=== PATIENT | male | born 1955 | race Caucasian/White ===

== ENCOUNTER 2019-12-03 19:54 | Observation (INO) | payer OTHER ==
--- OUTSIDE RECORDS SUMMARY | 2019-12-03 22:59 | XMS REPORT | Clinical Summary ---
:1955 Author Organization [facility] Address [address] [place] [address] Care Team Providers Name Role Phone Dyana Spencer MD Primary Care Provider Allergies No Known Allergies Medications Medication Sig Dispensed Refills Start Date End Date Status ciprofloxacin (CIPRO) Take 1 tablet 20 tablet 0 01/15/2019 500 MG tablet (500 mg total) by mouth 2 (two) times a day for 10 days. metroNIDAZOLE (FLAGYL) Take 1 tablet 30 tablet 0 01/15/2019 500 MG tablet (500 mg total) by mouth 3 (three) times a day for 10 days. Active Problems Not on file Encounters Date Type Specialty Care Team Description 01/15/2019 Emergency Emergency Medicine Patrice Mayfield is (Primary Dx); Jones Martinez MD Dehydrat ion after 12/02/2018 Social History Tobacco Use Types Packs/Day Years Used Date Never Smoker Smokeless Tobacco: Never Used Alcohol Use Drinks/Week oz/Week Comments Yes 3 Cans of beer 3.0 daily Sex Assigned at Date Recorded Not on file Job Start Date Occupation Industry Not on file Not on file Not on file Travel History Travel Start Travel End No recent travel history available. Last Filed Vital Signs Vital Sign Reading Time Taken Comments Blood Pressure 141/74 01/15/2019 5:33 PM CDT Pulse 77 01/15/2019 5:33 PM CDT Temperature 36.8 C (98.3 F) 01/15/2019 12:47 PM CDT Respiratory Rate 18 01/15/2019 5:33 PM CDT Oxygen Saturation 95% 01/15/2019 5:33 PM CDT Inhaled Oxygen Concentration - - Weight - - Height 172.7 cm (5' 8") 01/15/2019 12:47 PM CDT Body Mass Index - - Plan of Treatment Health Maintenance Due Date Last Done Comments COLONOSCOPY SCREENING 2004 SHINGLES VACCINES (#1) 2004 65+ PNEUMOCOCCAL VACCINE (1 of 2 - PCV13) 2019 INFLUENZA VACCINE 01/11/2020 Procedures Procedure Name Priority Date/Time Associated Comments Diagnosis CT ABDOMEN PELVIS W STAT 01/15/2019 4:48 Resu lts for this CONTRAST PM CDT procedure are i n the results section. VENOUS BLOOD GAS STAT 01/15/2019 2:00 Results for this PM CDT procedure are i n the results section. GASTROINTESTINAL PANEL Routine 01/15/2019 2:00 R esults for this PM CDT procedure are i n the results section. ESTIMATED GFR STAT 01/15/2019 1:52 Results fo r this PM CDT procedure are i n the results section. LACTIC ACID LEVEL STAT 01/15/2019 1:52 Result s for this PM CDT procedure are i n the results section. CREATINE KINASE, TOTAL STAT 01/15/2019 1:52 R esults for this (CPK) PM CDT procedure are i n the results section. TROPONIN STAT 01/15/2019 1:52 Results for this PM CDT procedure are i n the results section. LIPASE LEVEL STAT 01/15/2019 1:52 Results for this PM CDT procedure are i n the results section. URINALYSIS SCREEN AND STAT 01/15/2019 1:52 Re sults for this MICROSCOPY, WITH REFLEX PM CDT proc edure are in TO CULTURE the results section. COMPREHENSIVE METABOLIC STAT 01/15/2019 1:52 Results for this PANEL PM CDT procedure are i n the results section. HC COMPLETE BLD COUNT STAT 01/15/2019 1:52 Re sults for this W/AUTO DIFF PM CDT procedure are i n the results section. URINE CULTURE STAT 01/15/2019 1:52 Results fo r this PM CDT procedure are i n the results section. ECG 12-LEAD STAT 01/15/2019 1:51 Results for this PM CDT procedure are i n the results section. ECG ED PRELIMINARY Routine 01/15/2019 1:28 Resul ts for this INTERPRETATION PM CDT procedure are in the results section. after 12/02/[address] Abdomen Pelvis W Contrast (01/15/2019 4:48 PM CDT) Specimen Narrative Performed At Examination: CT ABDOMEN PELVIS W CONTRAS T [facility] Clinical history: IV and PO contrast A bdominal pain diarrhea Comparison: None Technique: Multiple computerized axial tomographic anyi ges were obtained of the abdomen and pelvis following administration of IV contrast.Sagittal and coronal computerized reformatted images were also obtained. Enteric contrast was not adm inistered. CT scans are performed using radiation dose reduction techniques. Technical factors are evaluated and adjusted to ensu re appropriate moderation of exposure. Automated dose management te chnology is applied to adjust radiation exposure whi le achieving a diagnostic quality image. IMPRESSION: The visualized lung bases are clear. Calcified athe rosclerotic coronary arterial plaque is present. Abdomen: 1. Left renal cysts demonstrates simple characteristic s and generally do not require surveillance. A 0.7 cm nodular density ext ending inferiorly off the inferior pole of the left kidney is too small to definitively characterize. The liver, spleen, adrenal glands, pancreas, and kidneys ar e otherwise unremarkable. 2. The pancreatic and biliary ducts are not dilated. T he abdominal aorta is normal caliber. 3. The bowel is not frankly dilated. Borderline flui d and gas distention of essentially the entire small bowel witho ut focal transition point may represent ileus. Mild mucosal enh ancement suggests possible enteritis. 4. There is no significant abdominal w all defect, hernia, or abscess. Pelvis: 1. Prostatectomy. The bladder is unrem arkable. 2. There is no acute osseous pathology . CONCLUSION: 1. PROSTATECTOMY. 2. PROBABLE ILEUS WITH MILD NONSPECIFIC ENTERITIS. 3. PLEASE SEE ABOVE [facility]-[id number] Procedure Note Hm Interface, Radiology Results Incoming - 01/15/2019 5:29 PM CDT Examination: CT ABDOMEN PELVIS W CONTRAST Clinical history: IV and PO contrast Ab dominal pain diarrhea Comparison: None Technique: Multiple computerized axial t omographic images were obtained of the abdomen and pelvis following administration of IV contrast.Sagittal and coronal computerized reformatted images were also obtained. Enteric contrast was not administered. CT scans are performed using radiation d ose reduction techniques. Technical factors are evaluated and adjusted to ensure appropriate moderation of exposure. Automated dose management technology is applied to adjust radiation exposure while achie ving a diagnostic quality image. IMPRESSION: The visualized lung bases are clear. C alcified atherosclerotic coronary arterial plaque is present. Abdomen: 1. Left renal cysts demonstrates simple characteristics and generally do not require surveillance. A 0.7 cm nodular density extending inferiorly off the inferior pole of the left kidney is too small to definitively characterize. The liver, spleen, adrenal glands, pancreas, and kidneys ar e otherwise unremarkable. 2. The pancreatic and biliary ducts are not dilated. The abdominal aorta is normal caliber. 3. The bowel is not frankly dilated. Juan Manuel rderline fluid and gas distention of essentially the entire small bowel without focal transition point may represent ileus. Mild mucosal enhancement suggests possible enteritis. 4. There is no significant abdominal wa ll defect, hernia, or abscess. Pelvis: 1. Prostatectomy. The bladder is unrema rkable. 2. There is no acute osseous pathology. CONCLUSION: 1. PROSTATECTOMY. 2. PROBABLE ILEUS WITH MILD NONSPECIFIC ENTERITIS. 3. PLEASE SEE ABOVE [facility]-[id number] Performing Organization Address City/[facility]/Zipcode Phone Number [address] [address] Gastrointestinal panel (01/15/2019 2:00 PM CDT) [facility] Gastrointestinal panel Positive for Sapovirus [facility] Negative for all other pathogens tested: HOSPITAL Negative for Salmonella Negative for Campylobacter Negative for Diarrheagenic E coli/Shigella Negative for Shiga-like toxin-producing E coli Negative for Plesiomonas shigelloides Negative for Yersinia enterocolitica Negative for Vibrio species Negative for Clostridium difficile (Toxin A/B) Negative for Cryptosporidium Negative for Giardia lamblia Negative for Cyclospora cayeteanensis Negative for Entamoeba histolytica Negative for Adenovirus F 40/41 Negative for Astrovirus Negative for Norovirus GI/GII Negative for Rotavirus A Negative for E coli 0157 This real-time PCR assay detects the presence of nucle ic acids (RNA or DNA) for the gastrointestinal pathogens listed. A result of "Not-detected" does not exclude the possib ility of the presence of one or more pathogens at concentrat ions less than the detectable limits of the assay. (A) Comment: Specimen Information Specimen Source: Stool Specimen Site: Nonpreserved Specimen Stool - Nonpreserved Performing Organization Address City/[facility]/Zipcode Phone Number [facility] DEPARTMENT OF PATHOLOGY AND [address] [place] [phone] GENOMIC MEDICINE [address] [place] [address] Venous blood gas (01/15/2019 2:00 PM CDT) Pathologist Sig nature pH, venous 7.33 7.32 - 7.42 [facility] pCO2, venous 58 (H) 45 - [address] [facility] pO2, venous 22 (L) 25 - [address] [facility] Base excess, venous 2 -2 - 2 mEq/L [facility] O2 saturation, 31 (L) 40 - 70 % [facility] Bicarbonate, venous 29.8 (H) 21.0 - 28.0 [facility] mmol/L [facility] Specimen Blood Performing Organization Address [facility]/Zipcode Phone Number [facility] DEPARTMENT OF PATHOLOGY [address] [facility] [place] [phone] AND GENOMIC MEDICINE [facility] [address] [facility] [place] [address] HOSPITAL Urinalysis screen and microscopy, with reflex to culture (01/15/2019 1:52 PM CDT) Pathologist Sig nature Specimen site Clean catch [facility] Color, UA Yellow [facility] Appearance, UA Clear [facility] Specific gravity, 1.025 1.001 - 1.030 [facility] pH, UA 5.0 5.0 - 9.0 [facility] Protein, UA 1+ (A) Negative [facility] Glucose, UA 1+ (A) Negative [facility] Ketones, UA Trace (A) Negative [facility] Bilirubin, UA Negative Negative [facility] Blood, UA Negative Negative [facility] Nitrite, UA Negative Negative [facility] Urobilinogen, UA <2.0 <2.0 E.U./dL [facility] Leukocyte esterase, Negative Negative [facility] WBC, UA 2 (H) 0 - 1 /HPF [facility] RBC, UA 2 0 - 5 /HPF [facility] Bacteria, UA None seen None seen [facility] Yeast, UA None seen [facility] Yeast with None seen [facility] pseudohyphae, UA [facility] Specimen Urine Performing Organization Address [facility] Phone Number [facility] DEPARTMENT OF PATHOLOGY [address] [place] [address] [phone] Estimated GFR (01/15/2019 1:52 PM CDT) Pathologist [facility] Estimated GFR 73 mL/min/1.73 [facility] Comment: m2 [facility] Catergory Units Interpretation HOS PITAL G1 >=90 Normal or high G2 60-89 Mildly decreased G3a 45-59 Mildly to moderately decreas ed G3b 30-44 Moderately to severely decre ased G4 15-29 Severely decreased G5 <15 Kidney failure The eGFR was calculated using the Chronic Kidney Disea se Epidemiology Collaboration (CKD-EPI) equation. Interpretation is based on recommendations of the National Kidney Foundation-Kidney Disease Outcomes Dejan lity Initiative (NKF-KDOQI) published in 2014. Specimen Plasma specimen Performing Organization Address [facility] Phone Number [facility] DEPARTMENT OF PATHOLOGY [address] [place] [address] Troponin (01/15/2019 1:52 PM CDT) Pathologist [facility] Troponin <0.006 0.000 - 0.040 [facility] Comment: ng/mL [facility] Laboratories changed methodology eff ective: HOSPITAL 10/16/2018 at 10:00 am The new method has a 99th percentile cutoff of 0.040 n g/mL Specimen Plasma specimen Performing Organization Address [facility] Phone Number [facility] DEPARTMENT OF PATHOLOGY [address] [place] [phone] CBC with platelet and differential (01/15/2019 1:52 PM CDT) Pathologist [facility] WBC 14.9 (H) 4.5 - 11.0 k/uL [facility] RBC 6.12 (H) 4.40 - 6.00 [facility] m/uL [facility] HGB 18.1 (H) 14.0 - 18.0 [facility] g/dL [facility] HCT 54.1 (H) 41.0 - 51.0 % [facility] MCV 88.4 82.0 - 100.[address] [facility] MCH 29.6 27.0 - 34.[address] [facility] MCHC 33.5 31.0 - 37.0 [facility] g/dL [facility] RDW - SD 44.4 37.0 - 55.[address] [facility] MPV 10.5 6.9 - 11.[address] [facility] Platelet count 396 150 - 400 K/uL [facility] Nucleated RBC 0.00 /[address] [facility] Neutrophils 88.8 (H) 39.0 - 69.0 % [facility] Lymphocytes 2.8 (L) 25.0 - 45.0 % [facility] Monocytes 7.0 0.0 - 10.0 % [facility] Eosinophils 0.8 0.0 - 5.0 % [facility] Basophils 0.2 0.0 - 1.0 % [facility] Immature granulocytes 0.4 0.0 - 1.0 % [facility] Specimen Blood Performing Organization Address City/[facility]/Zipcode Phone Number [facility] DEPARTMENT OF PATHOLOGY [address] [place] [address] [phone] [address] HOSPITAL Urine culture (01/15/2019 1:52 PM CDT) Pathologist Sig nature Urine culture SEE COMMENTComment: [facility] Bacteriuria screen [facility] negative. Specimen Performing Organization Address City/[facility]/Zipcode Phone Number [facility] DEPARTMENT OF PATHOLOGY [address] [place] [phone] AND [facility] [phone] [place] [address] X [phone] HOSPITAL Lipase level (01/15/2019 1:52 PM CDT) Pathologist Sig nature Lipase 22 13 - 60 U/L [facility] Specimen Plasma specimen Performing Organization Address City/[facility]/Zipcode Phone Number [facility] DEPARTMENT OF PATHOLOGY [address] [place] [address] X [phone] AND GENOMIC MEDICINE [place] [address] [place] [address] [facility] Lactic acid level (01/15/2019 1:52 PM CDT) Pathologist Sig nature Lactic acid 1.0 0.5 - 2.2 mmol/L [facility] Specimen Plasma specimen Performing Organization Address City/[facility] Phone Number [facility] DEPARTMENT OF PATHOLOGY [address] [place] [address] X [phone] X [address] [place] [address] Creatine kinase, total (CPK) (01/15/2019 1:52 PM CDT) Pathologist Sig nature Creatine kinase 60 39 - 308 U/L [facility] Specimen Plasma specimen Performing Organization Address [facility] Phone Number [facility] DEPARTMENT OF PATHOLOGY [address] [place] [address] X [phone] [place] [address] Comprehensive metabolic panel (01/15/2019 1:52 PM CDT) Pathologist Sig nature Sodium 140 135 - 148 mEq/L [facility] Potassium 4.0 3.5 - 5.0 mEq/L [facility] Chloride 102 98 - 112 mEq/L [facility] CO2 25 24 - 31 mEq/L [facility] Anion gap 13@ANIO 7 - 15 mEq/L [facility] BUN 15 8 - 23 mg/dL [facility] Creatinine 1.06 0.70 - 1.20 [facility]/dL [facility] Glucose 135 (H) 65 - 99 mg/dL [facility] Calcium 9.0 8.8 - 10.2 mg/dL [facility] Protein 7.6 6.3 - 8.3 g/dL [facility] Albumin 4.8 3.5 - 5.0 g/dL [facility] A/G ratio 1.7 0.7 - 3.8 [facility] Alkaline phosphatase 82 40 - 129 U/L [facility] AST 26 10 - 50 U/L [facility] ALT 28 5 - 50 U/L [facility] Total bilirubin 0.7 0.2 - 1.2 mg/dL [facility] Specimen Plasma specimen Performing Organization Address City/[facility]/Zipcode Phone Number [facility] DEPARTMENT OF PATHOLOGY [address] [facility] [place] [address] AND GENOMIC MEDICINE [facility] [address] [facility] [place] [address] HOSPITAL ECG 12 lead (01/15/2019 1:51 PM CDT) Pathologist Sig nature Ventricular rate 85 [facility] Atrial rate 85 [facility] MT interval 160 [facility] QRSD interval 106 [facility] QT interval 376 [facility] QTC interval 447 [facility] P axis 1 43 [facility] QRS axis 1 65 [facility] T wave axis 97 [facility] EKG impression Normal sinus [facility] MUSE rhythm-Nonspecific ST and T wave abnormality-Abnormal ECG-No previous ECGs available-Electronicall y Signed By Yoana ALVAREZ, Jose Eduardodaradha ([id number]) on 01/16/2019 10:47:53 AM Specimen Narrative Performed At This result has an attachment that is no t available. Performing Organization Address City/[facility] Phone Number [facility] MUSE [address] [place] [address] ECG ED Preliminary Interpretation - Not an Order (01/15/2019 1:28 PM CDT) Narrative Performed At Patrice Mayfield MD 01/18/2019 12:34 AM ECG ED Preliminary Interpretation - Not an Order Performed by: Patrice Mayfield MD Authorized by: Patrice Mayfield MD ECG reviewed by ED Physician in the abse nce of a prizer hand: yes Interpretation: Interpretation: abnormal Rate: ECG rate: 85 ECG rate assessment: normal Rhythm: Rhythm: sinus rhythm Ectopy: Ectopy: none QRS: QRS axis: Normal QRS intervals: Normal ST segments: ST segments: Non-specific T waves: T waves: non-specific after 12/02/2018 Advance Directives For more information, please contact: [phone] Type Date Recorded Patient Emergency Room Clinician Explanati on Advance Directives, Living Will 01/15/2019 2:10 PM and Medical Power of Project Analyst
--- OUTSIDE RECORDS SUMMARY | 2019-12-03 23:00 | XMS REPORT | Continuity of Care Document ---
:1955 Author Organization [employer] Care Team Providers Name Role Phone [facility] Unavailable Un available Problems Problem Status Onset Classification Date Comments Sourc e Date Reported Aortic valve stenosis Active Problem 04/28/2019 Data (disorder) migrated Medical from [employer] on 11/08/14. Essential hypertension Active Problem 04/28/2019 Data MH (disorder) migrated Medical from [employer] on 11/08/14. Hypercholesterolemia Active Problem 04/28/2019 Data (disorder) migrated Medical from [employer] on 11/08/14. Obstructive sleep apnea Active Problem 04/28/2019 Data syndrome (disorder) migrated Medical from [employer] on 11/08/14. Medications No Data Provided for This Section Allergies, Adverse Reactions, Alerts Substance Category Reaction Severity Reaction Status Date Comments S ource type Reported No Known Assertion Drug Medication allergy Medic al Allergies Group Immunizations Immunization Date Given Site Status Last Comments Source Updated tetanus-diphtheri 06/12/1998 completed GE Result Comm ent: Medical a td (adult) - Group toxoids<sup>1</figueroa unspecified p> formulation [[id number]]. Migrated from [facility] ; Data migrated from [facility] on 07/14/2015. Results No Data Provided for This Section Pathology Reports No Data Provided for This Section Diagnostic Reports No Data Provided for This Section Consultation Notes No Data Provided for This Section Discharge Summaries No Data Provided for This Section History and Physicals No Data Provided for This Section Vital Signs Vital Sign Value Date Comments Source Systolic (mm Hg) 148 04/25/2019 Medical Group Diastolic (mm Hg) 80 04/25/2019 Medical Group Heart Rate 80 04/25/2019 Medical Grou p Weight 103.295 04/25/2019 Medical Grou p Encounters Location Location Encounter Encounter Reason Attending ADM MD Stat us Source Details Type Number For Provider Date Date Visit [facility] Phone [id number] 03/13 03/15 Internal Message /2018 [facility] [id number] NURSE 04/25 Active [facility] VISIT /2018 [facility] Sleep Outpatient [id number] NURSE 04/25 04/26 Medicine VISIT /2018 [facility] [id number] NURSE 04/30 Active [facility] VISIT /2019 [place] Procedures Procedure Code Date Perfomer Comments Source Proctectomy [id number] [facility] AVR - Aortic valve [id number] Med ical replacement Group Assessment and Plan No Data Provided for This Section Plan of Care No Data Provided for This Section Social History Social History Date Source Social History TypeResponse 04/25/2019 Medical G roup Alcohol Type Beer. Frequency: Daily. Smoking Status Never smoker; Exposure to Tobacco Smoke None; Cigarette Smoking Last 365 Days No; Reg Smoking Cessation Counseling No entered on: 04/25/19 Family History No Data Provided for This Section Advance Directives No Data Provided for This Section Functional Status No Data Provided for This Section
[2019-12-03] MEDS ORDERED: NA CHLORIDE 0.9% 1,000 ML ONE (23:19)
[2019-12-03 23:26] LABS: Absolute Lymphocytes (CBC) 0.6 K/uL (0.7-4.9); Basophils % 0.2 % (0-1.3); Hematocrit 51.2 % (39.6-49.0); Lymphocytes % 3.2 % (15.3-44.8); MPV 9.1 fL (7.6-11.3)
[2019-12-03 23:30] LABS: Protime INR 1.15
[2019-12-03 23:55] LABS: ALT/SGPT 22 U/L (12-78); AST/SGOT 12 U/L (15-37); Alkaline Phosphatase 73 U/L (45-117); BUN Blood Urea Nitrogen 13 mg/dL (7-18); Bicarbonate 29 mmol/L (21-32); Bilirubin Direct 0.3 mg/dL (0-0.2); Bilirubin Total 1.5 mg/dL (0.2-1.0); Glucose Level 117 mg/dL (74-106); NT PRO-BNP 773 pg/mL (<125); Potassium 3.3 mmol/L (3.5-5.1); Protein, Total 7.8 g/dL (6.4-8.2); Sodium Level 138 mmol/L (136-145); Troponin (Emerg Dept Use Only) < 0.02 ng/mL (0.0-0.045)
[2019-12-04 00:53] LABS: Lipase 88 U/L (73-393)
[2019-12-04 00:56] LABS: Blood Morphology Comment NOT SEEN (NOT SEEN); Platelet Estimate ADEQ
[2019-12-04] MEDS ORDERED: PIPER/TAZO/NS 3.375gm 3.375 GM/100 ML BAG ONE (01:06)
[2019-12-04] MEDS ORDERED: METOPROLOL TAR 50 MG TAB ONE (02:31)
[2019-12-04] MEDS ORDERED: ACETAMINOPHEN 500 MG TAB ONE (02:32)
[2019-12-04] MEDS ORDERED: ROSUVASTATIN 10 MG TAB ONE (02:43)
[2019-12-04] MEDS ORDERED: ONDANSETRON 4 MG/2 ML VIAL IV PRN (03:20)
[2019-12-04] MEDS ORDERED: MORPHINE 4 MG/ML SYR IV PRN ×2 (03:20→15:58)
[2019-12-04] MEDS ORDERED: ACETAMINOPHEN 325 MG TABLET PO PRN (03:30)
[2019-12-04] MEDS ORDERED: NS KCL 20MEQ 1,000 ML IV ONE (03:41)
[2019-12-04] MEDS: NS KCL 20MEQ 20 MEQ/1,000 ML BAG IV SCH ×3 (03:59→21:36)
[2019-12-04] MEDS ORDERED: PIPER/TAZO/NS 3.375gm 3.375 GM/100 ML BAG IVPB SCH (06:00)
[2019-12-04 07:47] VITALS: BMI 32.3
--- NOTE | 2019-12-04 08:30 | RAD REPORT ---
EXAM DESCRIPTION: RAD - Chest Single View - 12/03/2019 11:02 pm CLINICAL HISTORY: ABDOMINAL DISTENTION Chest pain. COMPARISON: No comparisons FINDINGS: Portable technique limits examination quality. The lungs are grossly clear. The heart is normal in size. No displaced fractures. Sternotomy wires. IMPRESSION: No acute intrathoracic process suspected.
--- NOTE | 2019-12-04 08:49 | RAD REPORT ---
EXAM DESCRIPTION: US - Abdomen Exam Limited - 12/04/2019 7:43 am CLINICAL HISTORY: gallbladder Right upper quadrant pain. COMPARISON: No comparisons FINDINGS: The gallbladder demonstrates no gallstones. Mild sludge is present in the gallbladder. No pericholecystic fluid or gallbladder wall thickening. The common bile duct is normal measuring 6 mm. The liver demonstrates no findings of intrahepatic biliary dilatation. IMPRESSION: Mild gallbladder sludge.
--- NOTE | 2019-12-04 10:32 | ER ---
Nurse's Notes [facility] Name: Kwabena West Age: 64 yrs Sex: Male : 1955 Arrival Date: 12/03/2019 Time: 20:09 Bed 14 Private MD: Diagnosis: Abdominal tenderness;Elevated white blood cell count;Hypokalemia;Fever, unspecified;Cholecystitis Presentation: 12/02 20:20 Chief complaint: Patient states: Upper abdominal pain x 2 days. Went to PCP this ca1 morning. There is soreness on RUQ. She had me done Blood work at [facility] today and she just called me to come to the ER because my WBC is high. Denies N/V/D. Coronavirus screen: Proceed with normal triage. Patient denies a cough. Patient denies shortness of breath or difficulty breathing. Patient denies measured and/or subjective temperature greater than 100.4F prior to today's visit. Patient denies travel on a cruise ship or to a country the [facility] currently lists as an affected area. Patient denies contact with known and/or suspected case of COVID-19. Ebola Screen: Patient negative for fever greater than or equal to 101.5 degrees Fahrenheit, and additional compatible Ebola Virus Disease symptoms Patient denies exposure to infectious person. Patient denies travel to an Ebola-affected area in the 21 days before illness onset. No symptoms or risks identified at this time. Initial Sepsis Screen: Does the patient meet any 2 criteria? No. Patient's initial sepsis screen is negative. Does the patient have a suspected source of infection? No. Patient's initial sepsis screen is negative. Risk Assessment: Do you want to hurt yourself or someone else? Patient reports no desire to harm self or others. Onset of symptoms was December 03, 2019. 20:20 Method Of Arrival: Ambulatory ca1 20:20 Acuity: LISETH 3 ca1 Historical: - Allergies: 20:27 No Known Allergies; ca1 - Home Meds: 20:27 aspirin 325 mg Oral TbEC 1 tab once daily [Active]; Zyrtec 10 mg Oral cap [Active]; ca1 rabeprazole 20 mg oral TbEC 1 tab once daily [Active]; irbesartan-hydrochlorothiazide 300-12.5 mg oral tab 1 tab once daily [Active]; amlodipine 5 mg tab 1 tab once daily [Active]; hydrochlorothiazide 25 mg Oral tab 0.5 tab daily [Active]; metoprolol tartrate 100 mg Oral tab 1 tab 2 times per day [Active]; rosuvastatin 10 mg oral tab 1 tab once daily [Active]; - PMHx: 20:27 Hypertension; High Cholesterol; Prostate Ca; Aortic Stenosis; Gout; ca1 - PSHx: 20:27 Aortic Valve Replacement; ca1 - Immunization history:: Adult Immunizations up to date. - Social history:: Smoking status: Patient denies any tobacco usage or history of. - Family history:: not pertinent. Screenin/24 02:11 Abuse screen: Denies threats or abuse. Nutritional screening: No deficits noted. jd3 Tuberculosis screening: No symptoms or risk factors identified. Fall Risk IV access (20 points). Ambulatory Aid- None/Bed Rest/Nurse Assist (0 pts). Gait- Normal/Bed Rest/Wheelchair (0 pts) Mental Status- Oriented to own ability (0 pts). Total Richardson Fall Scale indicates No Risk (0-24 pts). Assessment: 12/02 23:30 General: Appears in no apparent distress. comfortable, Behavior is calm, cooperative, jd3 appropriate for age. Pain: Denies pain. Neuro: Level of Consciousness is awake, alert, obeys commands, Oriented to person, place, time, situation. Cardiovascular: Denies chest pain, Capillary refill < 3 seconds Patient's skin is warm and dry. Respiratory: Airway is patent Respiratory effort is even, unlabored, Respiratory pattern is regular, symmetrical, Denies cough, shortness of breath. GI: Abdomen is round non-distended, Bowel sounds present X 4 quads. Abd is soft X 4 quads Abdomen is tender to palpation in right upper quadrant and right lower quadrant Reports abdominal pain after eating Patient currently denies constipation, diarrhea, nausea, vomiting. : No signs and/or symptoms were reported regarding the genitourinary system. EENT: No signs and/or symptoms were reported regarding the EENT system. Derm: Skin is intact, Skin is dry, Skin is normal, Skin temperature is warm. Musculoskeletal: Circulation, motion, and sensation intact. Range of motion: intact in all extremities. 12/03 00:55 Reassessment: Patient appears in no apparent distress at this time. No changes from jd3 previously documented assessment. Patient and/or family updated on plan of care and expected duration. Pain level reassessed. Patient is alert, oriented x 3, equal unlabored respirations, skin warm/dry/pink. 02:09 Reassessment: Patient appears in no apparent distress at this time. Patient and/or jd3 family updated on plan of care and expected duration. Pain level reassessed. Patient is alert, oriented x 3, equal unlabored respirations, skin warm/dry/pink. 03:12 Reassessment: Patient appears in no apparent distress at this time. Patient and/or jd3 family updated on plan of care and expected duration. Pain level reassessed. Patient is alert, oriented x 3, equal unlabored respirations, skin warm/dry/pink. Dunia West (): [phone]. Vital Signs: 12/02 20:20 BP 160 / 81; Pulse 95; Resp 16 S; Temp 98.7(TE); Pulse Ox 98% on R/A; Weight 97.52 kg ca1 (R); Height 5 ft. 8 in. (172.72 cm) (R); Pain 2/10; 23:43 BP 151 / 73; Pulse 91; Resp 16 S; Pulse Ox 96% on R/A; jd3 12/03 02:09 BP 145 / 73; Pulse 88; Resp 20 S; Pulse Ox 96% on R/A; jd3 03:16 BP 144 / 70; Pulse 78; Resp 18 S; Pulse Ox 95% on R/A; jd3 12/02 20:20 Body Mass Index 32.69 (97.52 kg, 172.72 cm) ca1 ED Course: 12/02 20:09 Patient arrived in ED. ag3 20:23 Triage completed. ca1 20:27 Arm band placed on right wrist. ca1 22:08 Son Nunes MD is Attending Physician. kay 23:10 Thad Browne RN is Primary Nurse. jd3 23:15 Inserted saline lock: 20 gauge in right antecubital area, using aseptic technique. jd3 12/03 00:34 Cesar Garcia MD is Hospitalizing Provider. kay 01:53 Chest Single View In Process Unspecified. EDMS 01:56 Abdomen In Process Unspecified. EDMS 02:12 Patient has correct armband on for positive identification. Bed in low position. Call jd3 light in reach. Side rails up X 1. Adult w/ patient. window draper on. Pulse ox on. NIBP on. 03:13 No provider procedures requiring assistance completed. jd3 03:14 Patient admitted, IV remains in place. jd3 Administered Medications: 12/02 23:16 Drug: NS 0.9% 1000 ml Route: IV; Rate: 125 ml/hr; Site: right antecubital; jd3 12/03 03:29 Follow up: Response: No adverse reaction; IV Status: Infusion continued upon admission jd3 01:09 Drug: Zosyn 3.375 grams Route: IVPB; Infused Over: 60 mins; Site: right antecubital; jd3 02:00 Follow up: Response: No adverse reaction; IV Status: Completed infusion; IV Intake: jd3 100ml 02:42 Drug: Tylenol 1000 mg Route: PO; jd3 03:30 Follow up: Response: No adverse reaction jd3 02:42 Drug: Metoprolol TARTRATE (Lopressor) 100 mg Route: PO; jd3 03:30 Follow up: Response: No adverse reaction jd3 02:42 Drug: Crestor 10 mg Route: PO; jd3 03:30 Follow up: Response: No adverse reaction jd3 Intake: 02:00 IV: 100ml; Total: 100ml. jd3 Outcome: 00:35 Decision to Hospitalize by Provider. kay 03:14 Admitted to Med/surg accompanied by tech, via wheelchair, room 228, Report called to coco Olmos RN 03:14 Condition: stable 03:14 Instructed on the need for admit, Demonstrated understanding of instructions. 03:30 Patient left the ED. [email or web address] Signatures: Dispatcher [employer] EDCA Son Nunes MD MD cha Davies, Jonathon, RN RN Nona Block ag3 Lauren Baker RN RN ca1 Corrections: (The following items were deleted from the chart) 03:13 03:12 Reassessment: Patient appears in no apparent distress at this time. Patient jd3 and/or family updated on plan of care and expected duration. Pain level reassessed. Patient is alert, oriented x 3, equal unlabored respirations, skin warm/dry/pink. Dunia West: [phone] araceli 03:14 12/02 23:50 Inserted saline lock: 20 gauge in right antecubital area, using aseptic jd3 technique. jd3 12/03 03:14 12/02 23:50 Patient admitted, IV remains in place. jd3 jd3
--- NOTE | 2019-12-04 10:32 | EDPHYS ---
Physician Documentation [facility] Name: Kwabena West Age: 64 yrs Sex: Male : 1955 Arrival Date: 12/03/2019 Time: 20:09 Bed 14 Private MD: ED Physician Son Nunes HPI: 12/03 00:27 This 64 yrs old Male presents to ER via Ambulatory with complaints of kay Abdominal Pain. 00:27 The patient presents with abdominal pain in the epigastric area, in the upper abdomen. kay Onset: The symptoms/episode began/occurred 1 day(s) ago. The symptoms do not radiate. Associated signs and symptoms: none. The symptoms are described as constant, crampy. Modifying factors: The symptoms are alleviated by nothing. Severity of pain: At its worst the pain was moderate in the emergency department the pain is unchanged. The patient has not experienced similar symptoms in the past. Historical: - Allergies: 12/02 20:27 No Known Allergies; ca1 - Home Meds: 20:27 aspirin 325 mg Oral TbEC 1 tab once daily [Active]; Zyrtec 10 mg Oral cap [Active]; ca1 rabeprazole 20 mg oral TbEC 1 tab once daily [Active]; irbesartan-hydrochlorothiazide 300-12.5 mg oral tab 1 tab once daily [Active]; amlodipine 5 mg tab 1 tab once daily [Active]; hydrochlorothiazide 25 mg Oral tab 0.5 tab daily [Active]; metoprolol tartrate 100 mg Oral tab 1 tab 2 times per day [Active]; rosuvastatin 10 mg oral tab 1 tab once daily [Active]; - PMHx: 20:27 Hypertension; High Cholesterol; Prostate Ca; Aortic Stenosis; Gout; ca1 - PSHx: 20:27 Aortic Valve Replacement; ca1 - Immunization history:: Adult Immunizations up to date. - Social history:: Smoking status: Patient denies any tobacco usage or history of. - Family history:: not pertinent. ROS: 12/03 00:27 Constitutional: Negative for fever, chills, and weight loss, Eyes: Negative for injury, kay pain, redness, and discharge, ENT: Negative for injury, pain, and discharge, Neck: Negative for injury, pain, and swelling, Cardiovascular: Negative for chest pain, palpitations, and edema, Respiratory: Negative for shortness of breath, cough, wheezing, and pleuritic chest pain, Back: Negative for injury and pain, : Negative for injury, bleeding, discharge, and swelling, MS/Extremity: Negative for injury and deformity, Skin: Negative for injury, rash, and discoloration, Neuro: Negative for headache, weakness, numbness, tingling, and seizure, Psych: Negative for depression, anxiety, suicide ideation, homicidal ideation, and hallucinations, Allergy/Immunology: Negative for hives, rash, and allergies, Endocrine: Negative for neck swelling, polydipsia, polyuria, polyphagia, and marked weight changes, Hematologic/Lymphatic: Negative for swollen nodes, abnormal bleeding, and unusual bruising. Abdomen/GI: Positive for abdominal pain. Exam: 00:27 Constitutional: This is a well developed, well nourished patient who is awake, alert, kay and in no acute distress. Head/Face: Normocephalic, atraumatic. Eyes: Pupils equal round and reactive to light, extra-ocular motions intact. Lids and lashes normal. Conjunctiva and sclera are non-icteric and not injected. Cornea within normal limits. Periorbital areas with no swelling, redness, or edema. ENT: Nares patent. No nasal discharge, no septal abnormalities noted. Tympanic membranes are normal and external auditory canals are clear. Oropharynx with no redness, swelling, or masses, exudates, or evidence of obstruction, uvula midline. Mucous membranes moist. Neck: Trachea midline, no thyromegaly or masses palpated, and no cervical lymphadenopathy. Supple, full range of motion without nuchal rigidity, or vertebral point tenderness. No Meningismus. Chest/axilla: Normal chest wall appearance and motion. Nontender with no deformity. No lesions are appreciated. Cardiovascular: Regular rate and rhythm with a normal S1 and S2. No gallops, murmurs, or rubs. Normal PMI, no JVD. No pulse deficits. Respiratory: Lungs have equal breath sounds bilaterally, clear to auscultation and percussion. No rales, rhonchi or wheezes noted. No increased work of breathing, no retractions or nasal flaring. Back: No spinal tenderness. No costovertebral tenderness. Full range of motion. Male : Normal genitalia with no discharge or lesions. Skin: Warm, dry with normal turgor. Normal color with no rashes, no lesions, and no evidence of cellulitis. MS/ Extremity: Pulses equal, no cyanosis. Neurovascular intact. Full, normal range of motion. Neuro: Awake and alert, GCS 15, oriented to person, place, time, and situation. Cranial nerves II-XII grossly intact. Motor strength 5/5 in all extremities. Sensory grossly intact. Cerebellar exam normal. Normal gait. Psych: Awake, alert, with orientation to person, place and time. Behavior, mood, and affect are within normal limits. 00:27 Abdomen/GI: Inspection: distension, Bowel sounds: normal, Palpation: mild abdominal tenderness, in the epigastric area, right upper quadrant and left upper quadrant, Liver: no appreciated palpable abnormalities, Hernia: not appreciated. Vital Signs: 12/02 20:20 BP 160 / 81; Pulse 95; Resp 16 S; Temp 98.7(TE); Pulse Ox 98% on R/A; Weight 97.52 kg ca1 (R); Height 5 ft. 8 in. (172.72 cm) (R); Pain 2/10; 23:43 BP 151 / 73; Pulse 91; Resp 16 S; Pulse Ox 96% on R/A; jd3 12/03 02:09 BP 145 / 73; Pulse 88; Resp 20 S; Pulse Ox 96% on R/A; jd3 03:16 BP 144 / 70; Pulse 78; Resp 18 S; Pulse Ox 95% on R/A; jd3 12/02 20:20 Body Mass Index 32.69 (97.52 kg, 172.72 cm) ca1 MDM: 12/02 22:08 Patient medically screened. [facility] 12/03 00:29 Data reviewed: vital signs, nurses notes, lab test result(s), EKG, radiologic studies, [facility] CT scan, plain films. 12/02 22:09 Order name: Basic Metabolic Panel [facility] 12/02 22:09 Order name: CBC with Diff [facility] 12/02 22:09 Order name: LFT's [facility] 12/02 22:09 Order name: Magnesium [facility] 12/02 22:09 Order name: NT PRO-BNP [facility] 12/02 22:09 Order name: PT-INR [facility] 12/02 22:09 Order name: Troponin (emerg Dept Use Only) [facility] 12/02 22:09 Order name: Lipase [facility] 12/03 00:51 Order name: Urine Dipstick--Ancillary (enter results) tt3 12/03 01:05 Order name: Basic Metabolic Panel; Complete Time: 01:15 EDMS 12/03 01:05 Order name: Liver (Hepatic) Function; Complete Time: 01:15 EDMS 12/03 01:05 Order name: Troponin (Emerg Dept Use Only); Complete Time: 01:15 EDMS 12/03 01:05 Order name: NT PRO-BNP; Complete Time: 01:15 EDMS 12/03 01:05 Order name: Magnesium; Complete Time: 01:15 EDMS 12/02 22:09 Order name: XRAY Chest (1 view) [facility] 12/02 22:09 Order name: EKG; Complete Time: 11:30 [facility] 12/02 22:09 Order name: Cardiac monitoring; Complete Time: 23:10 [facility] 12/02 22:09 Order name: EKG - Nurse/Tech; Complete Time: 23:10 [facility] 12/02 22:09 Order name: CT Abd/Pelvis - IV Contrast Only [facility] 12/03 01:05 Order name: CBC with Automated Diff; Complete Time: 01:15 EDMS 12/03 01:05 Order name: Protime (+INR); Complete Time: 01:15 EDMS 12/03 01:05 Order name: Lipase; Complete Time: 01:15 EDMS 12/03 01:05 Order name: Manual Differential; Complete Time: 01:15 EDMS 12/03 01:48 Order name: Abdomen EDMI 12/03 01:50 Order name: Chest Single View [facility] 12/02 22:09 Order name: IV Saline Lock; Complete Time: 23:11 [facility] 12/02 22:09 Order name: Labs collected and sent; Complete Time: 23:11 [facility] 12/02 22:09 Order name: O2 Per Protocol; Complete Time: 23:11 [facility] 12/02 22:09 Order name: O2 Sat Monitoring; Complete Time: 23:11 [facility] 12/02 22:09 Order name: Urine Dipstick-Ancillary (obtain specimen); Complete Time: 00:40 [facility] Administered Medications: 12/02 23:16 Drug: NS 0.9% 1000 ml Route: IV; Rate: 125 ml/hr; Site: right antecubital; jd3 12/03 03:29 Follow up: Response: No adverse reaction; IV Status: Infusion continued upon admission jd3 01:09 Drug: Zosyn 3.375 grams Route: IVPB; Infused Over: 60 mins; Site: right antecubital; jd3 02:00 Follow up: Response: No adverse reaction; IV Status: Completed infusion; IV Intake: jd3 100ml 02:42 Drug: Tylenol 1000 mg Route: PO; jd3 03:30 Follow up: Response: No adverse reaction jd3 02:42 Drug: Metoprolol TARTRATE (Lopressor) 100 mg Route: PO; jd3 03:30 Follow up: Response: No adverse reaction jd3 02:42 Drug: Crestor 10 mg Route: PO; jd3 03:30 Follow up: Response: No adverse reaction jd3 Disposition: 12/04/19 00:35 Hospitalization ordered by Cesar Garcia for Inpatient Admission. Preliminary diagnosis are Abdominal tenderness, Elevated white blood cell count, Hypokalemia, Fever, unspecified, Cholecystitis. - Bed requested for Telemetry/MedSurg (Inpatient). - Status is Inpatient Admission. jd3 - Condition is Stable. - Problem is new. - Symptoms have improved. Signatures: Dispatcher [employer] EDMI Son Nunes MD MD cha Lasagna, Tonya, RN RN tl1 Thad Browne RN RN jd3 Lauren Baker RN RN ca1 Corrections: (The following items were deleted from the chart) 01:15 00:35 Hospitalization Ordered by Cesar Garcia MD for Inpatient Admission. Preliminary kay diagnosis is Abdominal tenderness; Elevated white blood cell count; Hypokalemia; Fever, unspecified. Bed requested for Telemetry/MedSurg (Inpatient). Status is Inpatient Admission. Condition is Stable. Problem is new. Symptoms have improved. [facility] 01:34 01:15 12/04/2019 00:35 Hospitalization Ordered by Cesar Garcia MD for Inpatient tl1 Admission. Preliminary diagnosis is Abdominal tenderness; Elevated white blood cell count; Hypokalemia; Fever, unspecified; Cholecystitis. Bed requested for Telemetry/MedSurg (Inpatient). Status is Inpatient Admission. Condition is Stable. Problem is new. Symptoms have improved. [facility] 03:30 01:34 12/04/2019 00:35 Hospitalization Ordered by Cesar Garcia MD for Inpatient jd3 Admission. Preliminary diagnosis is Abdominal tenderness; Elevated white blood cell count; Hypokalemia; Fever, unspecified; Cholecystitis. Bed requested for Telemetry/MedSurg (Inpatient). Status is Inpatient Admission. Condition is Stable. Problem is new. Symptoms have improved. tl1
[2019-12-04] MEDS: PIPER/TAZO/NS 3.375gm 3.375 GM/100 ML BAG IVPB SCH ×2 (11:35→17:00)
[2019-12-04] MEDS: FAMOTIDINE 20 MG/2 ML VIAL IV SCH ×2 (11:36→21:29)
--- NOTE | 2019-12-04 11:43 | RAD REPORT ---
EXAM DESCRIPTION: CT - Abdomen Pelvis W Contrast - 12/03/2019 11:49 pm CLINICAL HISTORY: Abdominal pain COMPARISON: none. TECHNIQUE: Computed axial tomography of the abdomen pelvis was obtained. 100 cc Isovue-300 was admin istered intravenously. Oral contrast was not requested which limits evaluation of bowel. All CT scans are performed using dose optimization technique as appropriate and may include automated exposure control or mA/KV adjustment according to patient size. FINDINGS: The liver, spleen, pancreas, and adrenals appear unremarkable. 3.2 centimeter left renal cyst. No evidence of diverticulitis. Normal appendix. Mild gallbladder distention. Gallbladder wall is mildly thickened. Common bile duct upper limits norm al caliber. Mild stranding within the fat adjacent the gallbladder Small amount of ascites. Small bilateral inguinal hernias contain fat Prostatectomy IMPRESSION: Mild gallbladder distention. Mildly thickened wall and mild stranding within the fat adj acent to the gallbladder probably indicate cholecystitis Due to technical problems the report could not be dictated after the exam was completed. A prelim rep ort was given to Dr. Nunes
[2019-12-04] MEDS ORDERED: FENTANYL CITR 100 MCG/2 ML ONE ×2 (12:15→14:17)
[2019-12-04] MEDS ORDERED: MIDAZOLAM HCL 2 MG/2 ML INJ ONE (12:17)
[2019-12-04] MEDS ORDERED: propofoL 200 MG/20 ML VIAL IV ONE ×2 (12:17→15:22)
[2019-12-04] MEDS ORDERED: ROCURONIUM 50 MG/5 ML VIAL IV ONE (12:17)
[2019-12-04] MEDS ORDERED: LIDOCAINE 1% MPF 5 ML VIAL ONE (12:17)
--- NOTE | 2019-12-04 12:23 | EKG ---
Test Date: 2019-12-03 Test Time: 23:09:37 Gambling Cashier: GT MEASUREMENT RESULTS: Intervals: Rate: 94 OH: 162 QRSD: 106 QT: 348 QTc: 435 [place]: P: 37 OH: 162 QRS: 42 T: 84 INTERPRETIVE STATEMENTS: Normal sinus rhythm Possible Left atrial enlargement Nonspecific ST abnormality Abnormal ECG No previous ECG available for comparison Electronically Signed On 12-04-19 12:22:17 CDT by Ted Love
[2019-12-04] MEDS ORDERED: Ringers Lactate 1,000 ML IV ONE (12:44)
[2019-12-04 13:03] LABS: Urine Blood NEGATIVE (NEG); Urine Glucose NEGATIVE (NEG); Urine Protein TRACE (NEG); Urine pH 5.5 (5.0-7.0)
--- NOTE | 2019-12-04 13:18 | P.HP ---
Date of Service: 12/04/19 PC: THIS 64-YEAR-OLD MALE PRESENTS EMERGENCY ROOM WITH SEVERE RIGHT UPPER QUADRANT ABDOMINAL PAIN FOR DIAGNOSIS AND TREATMENT. HPC: Patient has been having right upper quadrant abdominal pain off and on for last few months. However last night the pain was intense, caused him to double over. [place] like he had a football under his ribs. PMH: Hypertension, hypercholesterolemia, previous prostate cancer, PSHx: Aortic valve replacement, prostatectomy SOC: No known allergies, takes aspirin, Zyrtec, amlodipine, hydrochlorothia zide, metoprolol SYS REVIEW: No cough, wheeze, shortness of breath. No chest pain or palpitations. Denies any urinary complaints. Says he could probably walk a country mild but he does have a bad head and he is looking into having this replaced in the near future. O/E awake alert, still mildly uncomfortable. Vital signs are stable HEENT: Nonicteric Chest: Chest movement is equal bilaterally ABD: Mild right upper quadrant tenderness LOCO: Intact DATA: Has documented sludge on ultrasound IMPRESSION: Cholecystitis with cholelithiasis with biliary colic PLAN: I will take him the operating room for laparoscopic possible open cholecystectomy. The risks of this procedure have been discussed. The possibility of bleeding, infection, injury to bile ducts blood vessels intesti jerzy has been described. The possible need for an open and/or further surgeries and procedures was discussed. He understands and wants to proceed.
[2019-12-04] MEDS ORDERED: dexAMETHasone 10 MG/ML VIAL ONE (13:55)
[2019-12-04] MEDS ORDERED: KETOROLAC 30 MG/ML INJ ONE (13:55)
[2019-12-04] MEDS ORDERED: ONDANSETRON 4 MG/2 ML VIAL ONE (14:17)
[2019-12-04] MEDS ORDERED: GLYCOPYRROLATE 0.2 MG/ML SYR ONE (14:18)
[2019-12-04] MEDS ORDERED: NEOSTIGMINE 1 MG/ML -5 ML ONE (15:22)
--- NOTE | 2019-12-04 15:55 | P.OP ---
Preoperative diagnosis: Cholecystitis with cholelithiasis Postoperative diagnosis: Acute cholecystitis with cholelithiasis, hydrops of the gallbladder Primary procedure: Laparoscopic cholecystectomy Secondary procedure: Cholangiogram Anesthesia: General Estimated blood loss: Less than 15 cc Specimen: 1 gallbladder and contents Operative Technique: The patient brought the operating room and placed supine on the table. After the induction of adequate general endotracheal anesthesia, the area of the abdomen was prepped with a DuraPrep solution, and he was draped in usual aseptic manner. A subumbilical incision was made. This was brought down through the skin and subcutaneous tissue. The Visiport was now used to enter the peritoneal cavity and created pneumoperitoneum to approximately 12 mm of mercury. Under direct vision a 5 mm trocar was placed in the upper midline, and 2 other 5s on the right lateral side of the abdomen. The patient was then placed in reverse Trendelenburg and rolled to the left. We could see any acute inflammatory response in the right upper quadrant. The omentum was up over the liver. Taking omentum down we saw a markedly inflamed gallbladder with evidence of patchy necrosis on the serosal surface. There were numerous hard and soft adhesions adherent to the serosal surface. These were taken down using blunt sharp dissection and judicious use of the electric cautery. The fundus was finally freed. We were now able aspirate the contents of the gallbladder. We found it has to be thick clear bile. This is suggested hydrops of the gallbladder. A grasper was now placed on the fundus. Continue our presumed gentle dissection we were able exposed Nelly's pouch. Applying lateral traction we were finally to diet able to dissect out and exposed a markedly dilated cystic duct. There were thick a adherent adhesions in addition to a lot of edema in this area. Coming up I at the junction of the cystic duct with the gallbladder. We placed a clip across here. This was done after milking the duct back towards the gallbladder. An opening was made into this cystic duct. We obtained a cholangiogram. The cholangiogram was suboptimal as we could not adequately demonstrate the upper radicals. We could see a blush on power injection but the contrast tended to go down towards the duodenum. There was no evidence of any obstruction in this distal portion of the common duct. At this point the catheter was removed. A clip was placed across the cystic duct. This area is markedly edematous and we transected the duct with a Metzenbaum scissors. At this point and another grasper was placed down onto the transected cystic duct. Using a later time of chromic we were able place to obese distally to get a secure closure of the cystic duct. At this point the gallbladder was dissected free from the liver bed and placed into an Endo-Catch. It was brought up to the umbilical trocar site. It was necessary to open the fashion again this thick and chronically inflamed gallbladder out through the umbilical trocar site. This having being done the defect was approximated using 2 absorbable sutures of 2 0 PDS. The sutures were tied. Attention was torsed turned towards the abdominal cavity. We aspirated the irrigating fluid from the right upper quadrant. The area was inspected to ensure adequate hemostasis. At this point the pneumoperitoneum was collapsed, the trocars removed, and hu were applied to the skin. He was stable when sent to the recovery room. Needle sponge instrument count were correct. Transferred to: Recovery Room Condition: Good
[2019-12-04] MEDS ORDERED: HYDROCODONE/APAP 7.5/325 MG TAB PO PRN (15:58)
--- NOTE | 2019-12-04 16:25 | RAD REPORT ---
EXAM DESCRIPTION: RAD - Cholangiogram Oper-Xray Or - 12/04/2019 4:00 pm FINDINGS: There were 15 images submitted from a fluoroscopic assisted intraoperative cholangiogram. Multiple small filling defects are identified believed to be air bubbles. Assessment is limited when only selected images are available. Correlation is needed with findings during real-time evaluation. Fluoro time was 0.8 minutes.
[2019-12-05] MEDS: PIPER/TAZO/NS 3.375gm 3.375 GM/100 ML BAG IVPB SCH ×2 (00:47→08:52)
[2019-12-05 01:48] VITALS: O2SAT 96
[2019-12-05] MEDS: NS KCL 20MEQ 20 MEQ/1,000 ML BAG IV SCH (05:05)
[2019-12-05 05:17] LABS: Absolute Lymphocytes (CBC) 0.4 K/uL (0.7-4.9); Basophils % 0.3 % (0-1.3); Hematocrit 43.9 % (39.6-49.0); Lymphocytes % 2.5 % (15.3-44.8); MPV 8.9 fL (7.6-11.3); RBC Red Blood Cell Count 4.93 M/uL (4.33-5.43)
[2019-12-05 05:18] LABS: Potassium 4.2 mmol/L (3.5-5.1)
[2019-12-05] MEDS: FAMOTIDINE 20 MG/2 ML VIAL IV SCH (08:51)
[2019-12-05 12:31] VITALS: BP 123/60; TEMP 97.8
--- NOTE | 2019-12-05 13:26 | P.PN ---
Date of Service: 12/05/19 S: Patient feels better today, up ambulating, tolerating a diet. Good effort on his incentive spirometry. Voiding well on his own. O: Incisions are clean, vital signs are stable A: Stable status post laparoscopic cholecystectomy with cholangiogram PE: Discharge home
--- NOTE | 2019-12-05 13:28 | P.DS ---
Admission Date: 12/04/19 Discharge Date: 12/05/19 Disposition: ROUTINE DISCHARGE Discharge Condition: GOOD Reason for Admission: Acute postoperative abdominal pain Procedures: Laparoscopic cholecystectomy with cholangiogram Brief History of Present Illness: Patient presents to the emergency room with severe right upper quadrant epigastric pain for diagnosis and treatment. Hospital Course: Patient presents emergency room with severe right upper quadrant abdominal pain. He was evaluated in the ER. A CT scan was suspicious for cholecystitis, an ultrasound the following morning confirmed sludge and a thickened gallbladder. He was brought to the operating room were he underwent a laparoscopic cholecystectomy. He tolerated this procedure well. The cholangiogram down at that time was negative. He was admitted postoperatively for observation pain control. This morning is up ambulating, tolerating a diet, good effort on his incentive spirometry. He is voiding on his own. He will be discharged at this time and will follow me next week in my office. Should he have any questions or problems, he may go to the emergency room or contact me. Vital Signs/Physical Exam: Temp Pulse Resp BP Pulse Ox 97.8 F 81 18 123/60 97 12/05/19 12:00 12/05/19 12:00 12/05/19 12:00 12/05/19 12:00 12/05/19 12:00 Laboratory Data at Discharge: WBC 15.5 K/uL (4.3-10.9) H D 12/05/19 04:46 Hgb 14.8 g/dL (13.6-17.9) D 12/05/19 04:46 Hct 43.9 % (39.6-49.0) 12/05/19 04:46 Plt Count 332 K/uL (152-406) 12/05/19 04:46 PT 13.5 SECONDS (9.5-12.5) H 12/03/19 22:30 INR 1.15 12/03/19 22:30 Sodium 140 mmol/L (136-145) 12/05/19 04:46 Potassium 4.2 mmol/L (3.5-5.1) 12/05/19 04:46 BUN 22 mg/dL (7-18) H 12/05/19 04:46 Creatinine 1.10 mg/dL (0.55-1.3) 12/05/19 04:46 Glucose 141 mg/dL (74-106) H 12/05/19 04:46 Magnesium 2.0 mg/dL (1.8-2.4) 12/03/19 22:30 Total Bilirubin 1.5 mg/dL (0.2-1.0) H 12/03/19 22:30 AST 12 U/L (15-37) L 12/03/19 22:30 ALT 22 U/L (12-78) 12/03/19 22:30 Alkaline Phosphatase 73 U/L (45-117) 12/03/19 22:30 Lipase 56 U/L (73-393) L 12/05/19 04:46 Home Medications: Amlodipine [Norvasc*] 1 tab PO DAILY 12/04/19 Aspirin [Low Dose Aspirin EC] 1 tab PO DAILY 12/04/19 Cetirizine HCl [Zyrtec] 1 tab PO DAILY 12/04/19 Irbesartan/Hydrochlorothiazide [Avalide 300-12.5 mg Tablet] 1 tab PO DAILY 12/04/19 Metoprolol Tartrate [Lopressor] 1 tab PO BID 12/04/19 Rabeprazole Sodium 1 tab PO DAILY 12/04/19 Rosuvastatin [Crestor*] 1 tab PO BEDTIME 12/04/19 hydroCHLOROthiazide [Hydrochlorothiazide*] 1 tab PO DAILY 12/04/19
== END 2019-12-05 14:30 | disposition home or self-care (01) ==
LOC: ER 19:54 → 2ND 12-04 03:18 → INTOOBSV 12-04 03:18
PROVIDERS: ADMIT Surgery; ATTEND Surgery
PROC: BF13YZZ Fluoroscopy of Gallbladder and Bile Ducts using Other Contrast (ICD-10-PCS; 2019-12-04)
PROC: 0FT44ZZ Resection of Gallbladder, Percutaneous Endoscopic Approach (ICD-10-PCS; principal; 2019-12-04 13:45)
DX: K80.00 Calculus of gallbladder with acute cholecystitis without obstruction (principal); K82.1 Hydrops of gallbladder; Z11.59 Encounter for screening for other viral diseases; I10 Essential (primary) hypertension; E78.00 Pure hypercholesterolemia, unspecified; Z79.82 Long term (current) use of aspirin; Z79.899 Other long term (current) drug therapy; Z95.4 Presence of other heart-valve replacement; Z85.46 Personal history of malignant neoplasm of prostate; R94.31 Abnormal electrocardiogram [ECG] [EKG]
CPT/HCPCS: 96365; 96361; 93005; 85025 ×2; 80048 ×2; 36415 ×2; 83735; 85610; 82565; 80076; 88304; 81003; 84484; 83690 ×2; 83880; 74177; 74300; 71045; 76705; 99285; 47563; U0002; Q9967 ×2; J2704 ×2; J2250; J3010 ×2; J2543 ×3; J1100; J2710; J7120; J7030; J2405; G0378 ×3